=== PATIENT | female | born 1970 | race Caucasian/White ===

== ENCOUNTER 2022-10-14 11:51 | Outpatient (CLI) | payer BC, SELFPAY ==
--- NOTE | 2022-10-14 12:02 | MM_ITS ---
WS: [id number] BILATERAL 3D TOMOSYNTHESIS DIGITAL SCREENING MAMMOGRAPHY WITH CAD CLINICAL INFORMATION: SCREENING HISTORY: Screening mammogram. No current complaints. COMPARISON: None. TECHNIQUE: Bilateral CC and MLO views. FINDINGS: The breasts are composed of heterogeneous fibroglandular density tissue, which can limit the detectio n of small underlying mass lesions. Lobulated ovoid nodule LEFT breast likely represents an intramamm rudy lymph node or cluster of lymph nodes measuring 7 mm but indeterminant and no comparisons. Recomme nd ultrasound LEFT breast Further evaluation at the 2 to 4:00 position. A few incidental intramammary lymph nodes RIGHT breast. A few tiny punctate calcifications. MM/[place] [id number] IMPRESSION: BI-RADS: 0-Incomplete: Need additional imaging evaluation FOLLOW UP: Need Additional Imaging Recommend ultrasound LEFT breast further evaluation at the 2 to 4:00 position
== END 2022-10-14 11:52 | disposition home or self-care (01) ==
PROVIDERS: Visit Provider Family Medicine
DX: Z12.31 Encounter for screening mammogram for malignant neoplasm of breast (principal)
CPT/HCPCS: 77063; 77067

== ENCOUNTER 2022-11-13 09:54 | Outpatient (CLI) | payer BC, SELFPAY ==
--- NOTE | 2022-11-13 10:05 | US_ITS ---
WS: [id number] ULTRASOUND BREAST LEFT TECHNIQUE: Ultrasound left breast focused area of concern. CLINICAL INFORMATION: ABNORMAL MAMMO COMPARISON: Mammography October 14, 2022 FINDINGS: Ultrasound LEFT breast at the 2:00-4:00 position. At the 2:00 position 4 cm from the nipple, there is a hypoechoic solid nodule taller than wide. This is indeterminant and recommend further evaluation with ultrasound-guided biopsy. This measures approx imately 5.4 x 6.5 x 8.1 mm. Incidental lymph node with normal fatty hilum at the 3:00 position measuring 6.3 x 5.1 x 8.3 mm. Incidental echogenic lipoma at the 3:00 position 4 cm from the nipple measuring 10 x 5 x 10 mm. US/US breast LT limited* [id number] IMPRESSION: Recommend ultrasound-guided biopsy of the hypoechoic solid lesion at the 2:00 p osition 4 cm from the nipple
== END 2022-11-13 09:55 | disposition home or self-care (01) ==
PROVIDERS: PCP Family Medicine; Visit Provider Family Medicine
DX: R92.8 Other abnormal and inconclusive findings on diagnostic imaging of breast (principal); N63.21 Unspecified lump in the left breast, upper outer quadrant; D17.79 Benign lipomatous neoplasm of other sites
CPT/HCPCS: 76642

== ENCOUNTER 2022-12-17 08:23 | Outpatient (CLI) | payer BC, SELFPAY ==
--- NOTE | 2022-12-17 08:38 | US_ITS ---
WS: [id number] ULTRASOUND-GUIDED LEFT BREAST BIOPSY CLINICAL INFORMATION: LEFT ABNORMAL MAMMOGRAM FINDINGS: The procedure including risks, benefits, and complications were discussed with the patient who agreed to proceed. Using sterile technique patient was prepped and draped in the usual sterile fashion. Aft er 1% lidocaine utilizing real-time ultrasound guidance 5 14-gauge cores were obtained of the LEFT br east lesion at the 2 o'clock position. Subsequently a titanium clip was placed in the biopsy cavity. No immediate complications. Pathology demonstrates Benign fragments of fibroadipose tissue. - No malignancy identified. US/[place] [id number] IMPRESSION: 1. Uncomplicated ultrasound-guided LEFT breast biopsy at the 2:00 position 4 c m from the nipple. 2. The pathology demonstrates benign fibroadipose tissue. No malignancy identi fied. 3. Recommend 6 month LEFT diagnostic mammography and ultrasound to confirm sta bility postbiopsy. BI-RADS: 2-Benign FOLLOW UP: 6 Month Follow-up
== END 2022-12-17 08:24 | disposition home or self-care (01) ==
PROVIDERS: PCP Family Medicine; Visit Provider Family Medicine
DX: N63.21 Unspecified lump in the left breast, upper outer quadrant (principal)
CPT/HCPCS: 19083; 88305

== ENCOUNTER 2023-07-15 09:49 | Outpatient (CLI) | payer BC, SELFPAY ==
--- NOTE | 2023-07-15 10:19 | MM_ITS ---
WS: [id number] LEFT 3D TOMOSYNTHESIS DIGITAL MAMMOGRAPHY WITH CAD CLINICAL INFORMATION: POST BX 6MFU HISTORY: 6-month follow-up COMPARISON: 10/14/2022 and 11/13/2022 TECHNIQUE: 3 views of the left breast were obtained. FINDINGS: Scattered fibroglandular densities of the left breast. Stable ovoid nodules outer LEFT breast the lar gest measuring 7 mm. Biopsy clip upper outer LEFT breast. Adjacent stable intramammary lymph nodes. N o new abnormalities. Ultrasound is pending. ULTRASOUND BREAST LEFT TECHNIQUE: Ultrasound left breast focused area of concern. CLINICAL INFORMATION: POST BX 6MFU FINDINGS: Ultrasound LEFT breast the 2 o'clock position 4 cm from the nipple. Again seen is the ovoid hypoechoi c nodule previously biopsied measuring 11 x 10 x 5 mm unchanged compared to previous. Recommend retur n to annual screening mammography. IMPRESSION: MM/[place] [id number] BI-RADS: 2-Benign FOLLOW UP: 1 Year Follow-up Recommend return to annual screening mammography.
== END 2023-07-15 09:50 | disposition home or self-care (01) ==
PROVIDERS: PCP Family Medicine; Visit Provider Family Medicine
DX: R92.8 Other abnormal and inconclusive findings on diagnostic imaging of breast (principal)
CPT/HCPCS: 76642; 77061; G0279

== ENCOUNTER 2024-11-29 15:27 | Outpatient (CLI) | payer BC, SELFPAY ==
--- NOTE | 2024-11-29 | MM_ITS ---
WS: [id number] BILATERAL 3D TOMOSYNTHESIS DIGITAL SCREENING MAMMOGRAPHY WITH CAD CLINICAL INFORMATION: ANNUAL SCREENING HISTORY: Screening mammogram. No current complaints. COMPARISON: 2022 TECHNIQUE: Bilateral CC and MLO views. FINDINGS: Scattered fibroglandular densities bilaterally. No suspicious focal mass, asymmetry, calcifications, or architectural distortion. No evidence of malignancy. Biopsy marker LEFT axillary tail. Stable nodule upper outer LEFT breast likely a lymph node. Stable intramammary lymph node outer RIGHT breast. MM/MM [facility] tomosynthesis [id number] IMPRESSION: DENSITY: There are scattered areas of fibroglandular density. BI-RADS: 2 - Benign. FOLLOW UP: 1 Year Follow-up Recommend return to annual screening mammography.
== END 2024-11-29 15:28 | disposition home or self-care (01) ==
LOC: RAD 15:28
PROVIDERS: PCP Nurse Practitioner Family; Visit Provider Nurse Practitioner Family
DX: Z12.31 Encounter for screening mammogram for malignant neoplasm of breast (principal); R92.323 Mammographic fibroglandular density, bilateral breasts; N63.20 Unspecified lump in the left breast, unspecified quadrant; R59.0 Localized enlarged lymph nodes
CPT/HCPCS: 77063; 77067